=== PATIENT | female | born 1940 | race Caucasian/White ===

== ENCOUNTER → 2016-10-26 | Outpatient (CLI) | payer MEDICARE, BC ==
--- NOTE | 2016-10-26 13:44 | WOMENS IMAGING REPORT ---
EXAM DESCRIPTION: BILAT SCREENING MAMMO W/CAD COMPLETED DATE/TIME: 10/26/2016 11:07 am REASON FOR STUDY: ROUTINE SCREENING; Z12.31 Z12.31 ENCNTR SCREEN MAMMOGRAM FOR MALIGNANT NEOPLASM O F JOHN COMPARISON: July 2008 TECHNIQUE: Standard craniocaudal and mediolateral oblique views of each breast recorded using SHIFTa l acquisition. LIMITATIONS: None. FINDINGS: No masses, calcifications or architectural distortion. No areas of suspicion. Read with the assistance of CAD. .[facility] - R2 Cenova Version 1.3 .[facility] - R2 Cenova Version 1.3 .[facility] - R2 Cenova Version 2.4 .[facility] [place] R2 Cenova Version 2.4 .[facility] - R2 Chocolate Coater Version 9.2 IMPRESSION: NORMAL MAMMOGRAM. BIRADS 1. BREAST DENSITY: b. There are scattered areas of fibroglandular density. BIRAD: 1 NEGATIVE RECOMMENDATION: ROUTINE SCREENING COMMENT: The patient has been notified of the results by letter per SA requirements. Additional no tification policies are in place for contacting patient with suspicious or incomplete findings. Quality ID #225: The [employer] recommends an annual screening mammogram for women aged 40 years or over. This facility utilizes a reminder system to ensure that all patients receive reminder letters, and/or direct phone calls for appointments. This includes reminders for routine scr eening mammograms, diagnostic mammograms, or other Breast Imaging Interventions when appropriate. Th is patient will be placed in the appropriate reminder system. The [employer] (ACR) has developed recommendations for screening MRI of the breast s in certain patient populations, to be used in conjunction with mammography. Breast MRI surveillanc e may be appropriate for women with more than 20% lifetime risk of developing breast cancer as deter mined by genetic testing, significant family history of the disease, or history of mantle radiation f or Hodgkins Disease. ACR Practice Guidelines 2008. TECHNICAL DOCUMENTATION: FINDING NUMBER: (1) ASSESSMENT: (1) JOB ID: [id number] [employer]- All Rights Reserved
== END ==
LOC: WI 10:49
PROVIDERS: ATTEND Nurse Practitioner Acute Care
DX: Z12.31 Encounter for screening mammogram for malignant neoplasm of breast (principal)
CPT/HCPCS: 77067; G0202

== ENCOUNTER → 2016-11-30 | Outpatient (CLI) | payer MEDICARE, BC | LOC: LAB 12:52 | DX: M25.551 Pain in right hip (principal); M25.552 Pain in left hip | CPT/HCPCS: 36415; 85652; 86140 ==

== ENCOUNTER 2018-07-06 11:47 | Emergency (ER) | payer MEDICARE, BC ==
--- NOTE | 2018-07-06 12:51 | ER Document Report ---
ED Medical Screen (RME) - General Chief Complaint: Urinary Problem Stated Complaint: URINARY ISSUES Time Seen by Provider: 07/06/18 12:16 Primary Care Provider: ADONIS HOBBS NP [Primary Care Provider] - Follow up as needed Notes: Patient is a 77-year-old female presents to the emergency department for urinary frequency and hematuria. Patient states she has had urinary frequency for the last 3 months. States her primary care provider placed her on medication for overactive bladder. States today she noticed that her urine had blood in it which is why she presents to the emergency room. Patient is complaining of general suprapubic tenderness. She is denying any back pain, nausea, vomiting, fevers. GENERAL: Alert, interacts well. No acute distress. ABDOMEN: Soft, suprapubic tenderness noted non-distended. Bowel sounds present in all 4 quadrants. I have greeted and performed a rapid initial assessment of this patient. A comprehensive ED assessment and evaluation of the patient, analysis of test r esults and completion of the medical decision making process will be conducted by additional ED providers. This medical record was dictated with voice recognizing software. There may be grammatical, syntax errors that are unintended. TRAVEL OUTSIDE OF THE [place] IN LAST 30 DAYS: No - Related Data Allergies/Adverse Reactions: No Known Allergies Allergy (Verified 07/06/18 11:51) Past Medical History - Social History Frequency of alcohol use: None Drug Abuse: None - Past Medical History Cardiac Medical History: Reports: Hx Hypertension Denies: Hx Congestive Heart Failure, Hx DVT, Hx Heart Attack, Hx Hypercholesterolemia, Hx Pulmonary Embolism Pulmonary Medical History: Reports: Hx Asthma Denies: Hx COPD Neurological Medical History: Denies: Hx Seizures Endocrine Medical History: Denies: Hx Diabetes Mellitus Type 1, Hx Diabetes Mellitus Type 2, Hx Hyperthyroidism, Hx Hypothyroidism Renal/ Medical History: Denies: Hx Peritoneal Dialysis GI Medical History: Denies: Hx Cirrhosis, Hx Gastroesophageal Reflux Disease, Hx Hepatitis Musculoskeltal Medical History: 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 Bladder tack surgery. r obotic bladder surgery - Immunizations Hx Diphtheria, Pertussis, Tetanus Vaccination: Yes Physical Exam - Vital signs Vitals: Temp Pulse Resp BP Pulse Ox 97.8 F 88 16 154/84 H 96 07/06/18 11:59 07/06/18 11:59 07/06/18 11:59 07/06/18 11:59 07/06/18 11:59 Course - Vital Signs Vital signs: Temp Pulse Resp BP Pulse Ox 97.8 F 88 16 154/84 H 96 07/06/18 11:59 07/06/18 11:59 07/06/18 11:59 07/06/18 11:59 07/06/18 11:59 Doctor's Discharge - Discharge Referrals: ADONIS HOBBS, SENIOR MECHANICAL DESIGN ENGINEER [Primary Care Provider] - Follow up as needed
[2018-07-06 13:07] LABS: APPEARANCE,URINE TURBID; BILIRUBIN,URINE NEGATIVE (NEGATIVE); GLUCOSE, URINE NEGATIVE (NEGATIVE); KETONES,URINE NEGATIVE (NEGATIVE); LEUKOCYTE ESTERASE,URINE MODERATE (NEGATIVE); NITRITE,URINE POSITIVE (NEGATIVE); PROTEIN,URINE 100 mg/dL (NEGATIVE); URINE SPECIFIC GRAVITY 1.009; UROBILINOGEN,URINE NEGATIVE mg/dL (<2.0)
[2018-07-06 13:08] LABS: COLOR,URINE RED
[2018-07-06 13:40] LABS: ABSOLUTE BASOPHILS # (AUTO) 0.1 10^3/uL (0.0-0.2); ABSOLUTE LYMPHOCYTES (AUTO) 0.6 10^3/uL (0.5-4.7); ABSOLUTE MONOCYTES (AUTO) 0.3 10^3/uL (0.1-1.4); BASOPHILS % (AUTO) 0.7 % (0-2); EOSINOPHILS % (AUTO) 0.5 % (0-6); HEMATOCRIT 35.4 % (36.0-47.0); HEMOGLOBIN 12.1 g/dL (12.0-15.5); LYMPHOCYTES % (AUTO) 5.9 % (13-45); MEAN CORPUSCULAR HEMOGLOBIN 33.4 pg (27.0-33.4); MEAN CORPUSCULAR HGB CONC 34.1 g/dL (32.0-36.0); MEAN CORPUSCULAR VOLUME 98 fl (80-97); MONOCYTES % (AUTO) 2.9 % (3-13); PLATELET COUNT 301 10^3/uL (150-450); RED BLOOD COUNT 3.61 10^6/uL (3.72-5.28); RED CELL DISTRIBUTION WIDTH 15.8 % (11.5-14.0); TOTAL CELLS COUNTED % (AUTO) 100 %
[2018-07-06 14:02] LABS: ALANINE AMINOTRANSFERASE 28 U/L (9-52); ALBUMIN 4.1 g/dL (3.5-5.0); ALKALINE PHOSPHATASE 91 U/L (38-126); ANION GAP 7 (5-19); ASPARTATE AMINO TRANSFERASE 52 U/L (14-36); BILIRUBIN,DIRECT 0.5 mg/dL (0.0-0.4); BILIRUBIN,TOTAL 0.7 mg/dL (0.2-1.3); BLOOD UREA NITROGEN 14 mg/dL (7-20); CALCIUM 10.4 mg/dL (8.4-10.2); CARBON DIOXIDE 25 mmol/L (22-30); CHLORIDE 102 mmol/L (98-107); GLUCOSE 105 mg/dL (75-110); POTASSIUM 4.5 mmol/L (3.6-5.0); SODIUM 133.8 mmol/L (137-145); TOTAL PROTEIN 7.6 g/dL (6.3-8.2)
[2018-07-06] MEDS ORDERED: CEPHALEXIN 500 MG CAPSULE PO ONE (16:21)
--- NOTE | 2018-07-06 16:25 | ER Document Report ---
ED General - General Chief Complaint: Urinary Problem Stated Complaint: URINARY ISSUES Time Seen by Provider: 07/06/18 12:16 Primary Care Provider: ADONIS HOBBS NP [Primary Care Provider] - Follow up as needed Notes: Patient is a 77-year-old female presents to the emergency department for urinary frequency and hematuria. Patient states she has had urinary frequency for the last 3 months. States her primary care provider placed her on medication for overactive bladder. States today she noticed that her urine had blood in it which is why she presents to the emergency room. Patient is complaining of general suprapubic tenderness. She is denying any back pain, nausea, vomiting, fevers. TRAVEL OUTSIDE OF THE [place] IN LAST 30 DAYS: No - Related Data Allergies/Adverse Reactions: No Known Allergies Allergy (Verified 07/06/18 11:51) Past Medical History - Social History Smoking Status: Never Smoker Frequency of alcohol use: None Drug Abuse: None Family History: None, Reviewed & Not Pertinent Patient has suicidal ideation: No Patient has homicidal ideation: No - Past Medical History Cardiac Medical History: Reports: Hx Hypertension Denies: Hx Congestive Heart Failure, Hx DVT, Hx Heart Attack, Hx Hy percholesterolemia, Hx Pulmonary Embolism Pulmonary Medical History: Reports: Hx Asthma Denies: Hx COPD Neurological Medical History: Denies: Hx Seizures Endocrine Medical History: Denies: Hx Diabetes Mellitus Type 1, Hx Diabetes Mellitus Type 2, Hx Hyperthyroidism, Hx Hypothyroidism Renal/ Medical History: Denies: Hx Peritoneal Dialysis GI Medical History: Denies: Hx Cirrhosis, Hx Gastroesophageal Reflux Disease, Hx Hepatitis Musculoskeletal Medical History: 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 Bladder tack surgery. robotic bladder surgery - Immunizations Hx Diphtheria, Pertussis, Tetanus Vaccination: Yes Review of Systems - Review of Systems Constitutional: See HPI EENT: No symptoms reported Cardiovascular: See HPI Respiratory: See HPI Gastrointestinal: See HPI Genitourinary: See HPI Female Genitourinary: No symptoms reported Musculoskeletal: No symptoms reported Skin: No symptoms reported Hematologic/Lymphatic: No symptoms reported Neurological/Psychological: No symptoms reported Physical Exam - Vital signs Vitals: Temp Pulse Resp BP Pulse Ox 97.8 F 88 16 154/84 H 96 07/06/18 11:59 07/06/18 11:59 07/06/18 11:59 07/06/18 11:59 07/06/18 11:59 - Notes Notes: PHYSICAL EXAMINATION: Reviewed vital signs and charting by RN GENERAL: Alert, interacts well. No acute distress. HEAD: Normocephalic, atraumatic. EYES: Pupils equal and round. Extraocular movements intact. ENT: Oral mucosa moist, tongue midline. NECK: Full range of motion. Supple. Trachea midline. LUNGS: Clear to auscultation bilaterally, no wheezes, rales, or rhonchi. No respiratory distress. HEART: Regular rate and rhythm. No murmur ABDOMEN: soft, suprapubic tenderness. Non-distended. Bowel sounds present. no McBurney's point tenderness, no Gilbert sign. EXTREMITIES: Moves all 4 extremities spontaneously. No edema, No cyanosis. Normal distal neurovascular exam BACK: No CVAT NEUROLOGIC: Oriented and appropriate. Normal speech. PSYCH: Normal affect, normal mood. SKIN: Warm, dry, normal turgor. No rashes or lesions noted. Course - Re-evaluation Re-evalutation: 07/07/18 08:13 Overall well-appearing, alert and oriented and conversing properly. Patient with suprapubic tenderness and clinically consistent with hemorrhagic cystitis. Patient has a large UTI on urinalysis. - Vital Signs Vital signs: Temp Pulse Resp BP Pulse Ox 97.8 F 86 17 133/90 H 94 07/06/18 16:54 07/06/18 16:54 07/06/18 16:54 07/06/18 16:54 07/06/18 16:54 - Laboratory Result Diagrams: 07/06/18 13:16 07/06/18 13:16 Laboratory results interpreted by me: 07/06/18 07/06/18 07/06/18 11:50 13:16 13:16 RBC 3.61 L Hct 35.4 L MCV 98 H RDW 15.8 H Seg Neutrophils % 90.0 H Lymphocytes % 5.9 L Monocytes % 2.9 L Absolute Neutrophils 9.0 H Sodium 133.8 L Calcium 10.4 H Direct Bilirubin 0.5 H AST 52 H Urine Protein 100 H Urine Blood LARGE H Urine Nitrite POSITIVE H Ur Leukocyte Esterase MODERATE H Discharge - Discharge Clinical Impression: Urinary tract infection Condition: Good Disposition: HOME, SELF-CARE Instructions: Cephalexin ([facility]), Urinary Tract Infection ([facility]) Additional Instructions: Your urine shows findings consistent with a urinary tract infection. Please take all the antibiotics as directed even if your symptoms have improved. Please follow-up with your primary care physician as needed. Return to emergency room if you develop fever >101F, persistent vomiting, become lethargic, have severe pain in your sides, or any other symptoms that are concerning to you. Prescriptions: RX: Cephalexin Monohydrate [Keflex 500 mg Capsule] 500 mg PO BID 7 Days #14 capsule Referrals: ADONIS HOBBS NP [Primary Care Provider] - Follow up as needed
[2018-07-06 16:55] VITALS: BP 133/90
== END 2018-07-06 16:55 | disposition home or self-care (01) ==
LOC: ER 11:47
DX: N39.0 Urinary tract infection, site not specified (principal); R31.0 Gross hematuria; N32.81 Overactive bladder; Z79.899 Other long term (current) drug therapy; I10 Essential (primary) hypertension; J45.909 Unspecified asthma, uncomplicated
CPT/HCPCS: 99283; 36415; 87086; 85025; 87088; 80053; 81001; 87186; A9270

== ENCOUNTER 2018-08-05 19:24 | Emergency (ER) | payer MEDICARE, BC ==
[2018-08-05 20:21] LABS: ABSOLUTE EOSINOPHILS # (AUTO) 0.3 10^3/uL (0.0-0.6); ABSOLUTE LYMPHOCYTES (AUTO) 1.7 10^3/uL (0.5-4.7); ABSOLUTE MONOCYTES (AUTO) 0.5 10^3/uL (0.1-1.4); ABSOLUTE NEUT (AUTO) 4.5 10^3/uL (1.7-8.2); BASOPHILS % (AUTO) 0.4 % (0-2); EOSINOPHILS % (AUTO) 3.7 % (0-6); HEMATOCRIT 31.5 % (36.0-47.0); HEMOGLOBIN 10.4 g/dL (12.0-15.5); LYMPHOCYTES % (AUTO) 24.1 % (13-45); MEAN CORPUSCULAR HEMOGLOBIN 32.2 pg (27.0-33.4); MEAN CORPUSCULAR VOLUME 98 fl (80-97); PLATELET COUNT 288 10^3/uL (150-450); RED BLOOD COUNT 3.23 10^6/uL (3.72-5.28); RED CELL DISTRIBUTION WIDTH 16.3 % (11.5-14.0); SEGMENTED NEUTROPHILS % (AUTO) 64.8 % (42-78); TOTAL CELLS COUNTED % (AUTO) 100 %; WHITE BLOOD COUNT 6.9 10^3/uL (4.0-10.5)
[2018-08-05 20:32] LABS: ALANINE AMINOTRANSFERASE 31 U/L (9-52); ALBUMIN 3.6 g/dL (3.5-5.0); ALKALINE PHOSPHATASE 66 U/L (38-126); ANION GAP 10 (5-19); ASPARTATE AMINO TRANSFERASE 39 U/L (14-36); BILIRUBIN,DIRECT 0.1 mg/dL (0.0-0.4); BILIRUBIN,TOTAL 0.5 mg/dL (0.2-1.3); BLOOD UREA NITROGEN 23 mg/dL (7-20); CALCIUM 9.8 mg/dL (8.4-10.2); CARBON DIOXIDE 25 mmol/L (22-30); CHLORIDE 99 mmol/L (98-107); GLUCOSE 132 mg/dL (75-110); LIPASE 244.3 U/L (23-300); POTASSIUM 4.6 mmol/L (3.6-5.0); TOTAL PROTEIN 6.2 g/dL (6.3-8.2)
--- NOTE | 2018-08-05 20:48 | RADIOLOGY REPORT (SQ) ---
EXAM DESCRIPTION: XR CHEST 1 VIEW COMPLETED DATE/TME: 08/05/2018 20:03 CLINICAL HISTORY: 77 years, Female, choking COMPARISON: Prior study from 02/15/2016 NUMBER OF VIEWS: One TECHNIQUE: Single frontal view of the chest was obtained. LIMITATIONS: None. FINDINGS: Cardiac and mediastinal contours are stable. Bibasilar opacity persists, unchanged from 02/15/2016, likely indicating eventration of the right hemidiaphragm or prominent epicardial fat given its stability. Bandlike opacity is evident about the left lung base, likely atelectasis or scar. No pleural effusion or pneumothorax. IMPRESSION: Stable right basilar opacity, likely indicating eventration of the right hemidiaphragm or prominent pericardial fat given its long-term stability. Otherwise, bandlike opacity about the left lung base most likely indicates atelectasis/scar. copyright 2010 [employer]- All Rights Reserved
[2018-08-05] MEDS ORDERED: SUCRALFATE 1 GM TABLET PO ONE (21:53)
[2018-08-05] MEDS ORDERED: MORPHINE SULFATE 10 MG/ML INJ IV PRN (21:53)
[2018-08-05] MEDS ORDERED: METOCLOPRAMIDE HCL INJ/PF 10 MG/2 ML SDV IV ONE (21:53)
[2018-08-05] MEDS ORDERED: FAMOTIDINE INJ/PF 20 MG/2 ML SDV IV ONE (21:53)
[2018-08-05] MEDS ORDERED: LIDOCAINE 2% VISCOUS SOLN 20 ML UDCUP PO ONE (21:54)
[2018-08-05] MEDS ORDERED: METOCLOPRAMIDE HCL ORAL SOLN 10 MG/10 ML UDCUP PO ONE (21:54)
[2018-08-05] MEDS ORDERED: MAG HYDROX/AL HYDROX/SIMETH SUSP 30 ML UDCUP PO ONE (21:54)
--- NOTE | 2018-08-05 21:56 | ER Document Report ---
ED General - General Chief Complaint: Epigastric Pain Stated Complaint: CHEST DISCOMFORT Time Seen by Provider: 08/05/18 20:02 Primary Care Provider: ADONIS HOBBS NP [Primary Care Provider] - Follow up as needed Notes: Patient is a 77-year-old female with past medical history of rheumatoid arthritis, hypertension, presents with epigastric abdominal pain radiating around to her right upper quadrant and right flank. Patient states that the pain started while eating Telugu food. It is a dull, throbbing, aching, constant, severe pain. Patient states that she is been having this pain on and off for months but it is more severe tonight than normal. No exacerbating or alleviating factors that she can identify. She has had nausea with no vomiting. She states that she feels like there is something stuck in her throat as well with this pain. She denies distinct chest pain or shortness of breath. No car diac history. She is scheduled to see a GI doctor for endoscopy for further evaluation of this ongoing recurrent pain. TRAVEL OUTSIDE OF THE [place] IN LAST 30 DAYS: No - Related Data Allergies/Adverse Reactions: No Known Allergies Allergy (Verified 08/05/18 21:46) Past Medical History - General Information source: Patient - Social History Smoking Status: Never Smoker Frequency of alcohol use: None Drug Abuse: None Lives with: Spouse/Significant other Family History: Reviewed & Not Pertinent Patient has suicidal ideation: No Patient has homicidal ideation: No - Past Medical History Cardiac Medical History: Reports: Hx Hypertension Denies: Hx Congestive Heart Failure, Hx DVT, Hx Heart Attack, Hx Hypercholesterolemia, Hx Pulmonary Embolism Pulmonary Medical History: Reports: Hx Asthma Denies: Hx COPD Neurological Medical History: Denies: Hx Seizures Endocrine Medical History: Denies: Hx Diabetes Mellitus Type 1, Hx Diabetes Mellitus Type 2, Hx Hyperthyroidism, Hx Hypothyroidism Renal/ Medical History: Denies: Hx Peritoneal Dialysis GI Medical History: Denies: Hx Cirrhosis, Hx Gastroesophageal Reflux Disease, Hx Hepatitis Musculoskeletal Medical History: 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 Bladder tack surgery. robotic bladder surgery - Immunizations Hx Diphtheria, Pertussis, Tetanus Vaccination: Yes Review of Systems - Review of Systems Notes: Constitutional: Negative for fever. HENT: Negative for sore throat. Eyes: Negative for visual changes. Cardiovascular: Negative for chest pain. Respiratory: Negative for shortness of breath. Gastrointestinal: Positive for upper abdominal pain, nausea Genitourinary: Negative for dysuria. Musculoskeletal: Positive for right flank pain and mid back pain Skin: Negative for rash. Neurological: Negative for headaches, weakness or numbness. 10 point ROS negative except as marked above and in HPI. Physical Exam - Vital signs Vitals: Temp Pulse Resp BP Pulse Ox 97.8 F 68 14 130/68 H 94 08/05/18 19:24 08/05/18 19:24 08/05/18 19:24 08/05/18 19:24 08/05/18 19:24 Notes: PHYSICAL EXAMINATION: GENERAL: Appears moderately unwell but in no overt distress HEAD: Atraumatic, normocephalic. EYES: Pupils equal round and reactive to light, extraocular movements intact, sclera anicteric, conjunctiva are normal. ENT: nares patent, oropharynx clear without exudates. Moist mucous membranes. NECK: Normal range of motion, supple without lymphadenopathy LUNGS: Breath sounds clear to auscultation bilaterally and equal. No wheezes rales or rhonchi. HEART: Regular rate and rhythm without murmurs ABDOMEN: Soft, focal tenderness to the epigastrium and right upper quadrant, normoactive bowel sounds. No guarding, no rebound. No masses appreciated. EXTREMITIES: Normal range of motion, no pitting or edema. No cyanosis. NEUROLOGICAL: No focal neurological deficits. Moves all extremities spontaneously and on command. PSYCH: Normal mood, normal affect. SKIN: Warm, Dry, normal turgor, no rashes or lesions noted. Course - Re-evaluation Re-evalutation: 08/05/18 21:55 Patient presents with epigastric abdominal pain with associated reflux symptoms most consistent with likely gastritis. He has had similar symptoms for over 3 months, scheduled to see her GI physician for endoscopy given the ongoing duration of her symptoms. Symptoms did start today after eating Telugu food. Patient has no focal abdominal tenderness on examination. Given advanced age CT the abdomen pelvis was obtained to exclude aortic pathology as patient was complaining of pain radiating through to her back. This is noted to be normal with the exception of heavy colonic stool burden. Lipase is normal. No LFT changes. EKG, troponin normal. Based on history and exam, I do not suspect ACS, pulmonary embolus, SBO, mesenteric ischemia, acute pancreatitis, biliary pathology, or an abdominal aortic dissection. Patient has had improvement of symptoms here with a GI cocktail. At this time will discharge with return precautions and follow-up recommendations. Verbal discharge instructions given a the bedside and opportunity for questions given. Medication warnings reviewed. Patient is in agreement with this plan and has verbalized understanding of return precautions and the need for primary care follow-up in the next 24-72 hours. - Vital Signs Vital signs: Temp Pulse Resp BP Pulse Ox 97.8 F 68 23 H 107/42 L 94 08/05/18 19:24 08/05/18 19:24 08/05/18 23:32 08/05/18 23:32 08/05/18 23:32 - Laboratory Result Diagrams: 08/05/18 19:36 08/05/18 19:36 Laboratory results interpreted by me: 08/05/18 08/05/18 19:36 19:36 RBC 3.23 L Hgb 10.4 L Hct 31.5 L MCV 98 H RDW 16.3 H Sodium 134.0 L BUN 23 H Glucose 132 H AST 39 H Total Protein 6.2 L - Diagnostic Test Radiology reviewed: Reports reviewed - EKG Interpretation by Me Additional EKG results interpreted by me: 08/06/18 00:52 Sinus rhythm, rate 59. No ST elevations or depressions. QTC is 420. Discharge - Discharge Clinical Impression: Upper abdominal pain, Mid back pain, Nausea Condition: Good Disposition: HOME, SELF-CARE Additional Instructions: Your symptoms appear to be most consistent with stomach or upper intestinal irritation. Please begin taking famotidine 40 mg in the morning and 40 mg at night. Take Carafate prior to meals. You may also take medicine such as Pepto- Bismol or Tums to assist with your pain. Please return to emergency department immediately if you have worsening of your pain, shortness of breath, vomiting, become unable to exert yourself due to pain or difficulty breathing, you pass out, or have any pain that radiates into your arms, jaw, or back. Please also return if you have any additional symptoms that are concerning to you. As we have discussed, the most important thing is lifestyle changes. You need to avoid smoking, sodas, tea, coffee, alcohol, spicy foods, and acidic foods such as citrus fruits, tomato based products, berries, and most fruit juices. Your CT scan did also note a large amount of stool in your colon which could also contribute to your symptoms. Please take 1-2 capfuls of MiraLAX daily to assist with your constipation. Prescriptions: Famotidine 40 mg PO BID #60 tablet Sucralfate [Carafate 1 gm Tablet] 1 gm PO ACHS #120 tablet Referrals: ADONIS HOBBS NP [Primary Care Provider] - Follow up in 3-5 days
--- NOTE | 2018-08-05 23:04 | EKG REPORT ---
SEVERITY:- NORMAL ECG - SINUS RHYTHM : Confirmed by: Adam Hastings 05-Aug-2018 23:03:55
--- NOTE | 2018-08-06 00:29 | RADIOLOGY REPORT (SQ) ---
EXAM DESCRIPTION: CT ABDOMEN PELVIS WITH IV CONTRAST COMPLETED DATE/TME: 08/05/2018 21:53 CLINICAL HISTORY: 77 years, Female, upper ab pain, radiating to the back COMPARISON: None. TECHNIQUE: Contrast enhanced CT of the abdomen/pelvis was performed. Coronal and sagittal reformations were created. Images stored on PACS. All CT scanners at this facility use dose modulation, iterative reconstruction, and/or weight based dosing when appropriate to reduce radiation dose to as low as reasonably achievable (ALARA). [facility]: Dose Right [facility]: CareDose [facility]: Dose Right [facility]: Teradose 4D [facility]: Filao LIMITATIONS: None. FINDINGS: Limited evaluation of the lower chest reveals a small right pleural effusion with associated right basilar atelectasis. Additional band of opacity is noted about the left lower lobe, indicating atelectasis or scar as well. The liver, spleen, pancreas, gallbladder, and both adrenal glands appear normal. Both kidneys enhance symmetrically. There is no hydronephrosis or hydroureter. The urinary bladder is poorly visualized secondary to extensive streak artifact from the patient's indwelling bilateral total hip arthroplasties. A tiny focus of gas density is noted about the urinary bladder however, presumably iatrogenic. Scattered colonic diverticula are noted without pericolonic inflammation. There is a large amount of stool located within the right hemicolon. Moderately sized bilateral inguinal hernias are noted, the left which contains only fat and the right of which contains a short segment of small bowel. Otherwise, the small and large bowel appear normal in caliber without evidence of focal wall thickening or bowel obstruction. A tiny fat-containing umbilical hernia is also evident. Mild calcifications are noted about the abdominal aorta and proximal iliac vessels. No suspicious lymphadenopathy or drainable fluid collections are appreciated. The uterus is absent. A 3.3 x 2.6 cm fluid density lesion is noted in the region of the left adnexa on image 66 of series 3. Right ovary shows no suspicious abnormality. Bone windows show no destructive osseous lesions. Multilevel lumbar spondylosis is evident with leftward curvature of the lower lumbar spine. IMPRESSION: No acute abnormality within the abdomen or pelvis. Large amount of stool within the right hemicolon. Small right pleural effusion with associated right basilar atelectasis. Moderately sized bilateral inguinal hernias, the right of which contains a short segment of small bowel in the left which contains only fat. No evidence of bowel obstruction. 3.3 cm benign appearing ovarian cyst. Recommend prompt follow-up with pelvic US given the patient's age. Reference: J Am Sagar Radiol 2013;10:675-681 TECHNICAL DOCUMENTATION: Quality ID # 436: Final reports with documentation of one or more dose reduction techniques (e.g., Automated exposure control, adjustment of the mA and/or kV according to patient size, use of iterative reconstruction technique) copyright 2011 [employer]- All Rights Reserved
[2018-08-06] MEDS ORDERED: LACTULOSE SYRUP 20 GM/30 ML UDCUP PO ONE (00:51)
[2018-08-06] MEDS ORDERED: LACTULOSE SYRUP 20 GM/30 ML UDCUP ONE (02:03)
[2018-08-06 02:08] VITALS: BP 141/70
== END 2018-08-06 02:12 | disposition home or self-care (01) ==
LOC: ER 19:24
DX: R10.13 Epigastric pain (principal); R10.11 Right upper quadrant pain; M54.6 Pain in thoracic spine; R11.0 Nausea; I10 Essential (primary) hypertension; M06.9 Rheumatoid arthritis, unspecified; Z90.710 Acquired absence of both cervix and uterus
CPT/HCPCS: 93005; 99285; 96374; 96375; 36415; 83690; 85025; 80053; 84484; 71045; 74177; 93010; A9270 ×3; J3490; J2765; S0028

== ENCOUNTER 2018-12-07 08:38 | Day surgery (SDC) | payer MEDICARE, BC ==
[2018-12-07] MEDS ORDERED: DIPHENHYDRAMINE HCL 50 MG/ML VIAL ONE (08:48)
[2018-12-07] MEDS ORDERED: ONDANSETRON HCL INJ/PF 4 MG/2 ML SDV ONE (08:48)
[2018-12-07] MEDS ORDERED: GLUCAGON,HUMAN RECOMB 1 MG INJ ONE (08:49)
[2018-12-07] MEDS ORDERED: NALOXONE HCL INJ/PF 0.4 MG/1 ML SDV ONE (08:49)
[2018-12-07] MEDS ORDERED: EPINEPHRINE INJ 1 MG/10 ML DISP.SYRIN ONE (08:49)
[2018-12-07] MEDS ORDERED: FLUMAZENIL INJ 0.5 MG/5 ML VIAL ONE (08:49)
[2018-12-07] MEDS: MIDAZOLAM 2 MG/2 ML INJ ONE ×4 (09:07→09:32)
[2018-12-07] MEDS: FENTANYL CITRATE INJ/PF 100 MCG/2 ML AMPUL ONE ×2 (09:09→09:24)
--- NOTE | 2018-12-07 09:51 | Discharge Summary ---
Discharge Summary (SDC) - Discharge Final Diagnosis: Incomplete colonoscopy Date of Surgery: 12/07/18 Discharge Date: 12/07/18 Condition: Good Treatment or Instructions: [facility] [place] [id number] POST ENDOSCOPY DISCHARGE INSTRUCTIONS 1. Diet: Start clear liquids that a regular diet as tolerated. 2. Resume all preoperative medications. All oral anticoagulants and aspirins can be resumed 24 hours after procedure. 3. If a polypectomy was performed some bleeding per rectum may occur. This should stop within 3 days. If not, please contact the office. 4. If you had a colonoscopy you may experience some bloating and delayed return of normal bowel function for several days, your regular bowel movement pattern should resume within a week. 5. Please contact [facility] at to make an appointment with Dr. Hensley for 1 to 3 weeks following procedure. 6. If you have any questions or concerns regarding your care,treatment plan or follow up, please contact our office. Referrals: DARRIN ZELAYA MD [Primary Care Provider] - Discharge Diet: As Tolerated Discharge Activity: Activity As Tolerated Home Care Assistance: None Needed Report the Following to Your Physician Immediately: Shortness of Breath, Increase in Pain, Fever over 101 Degrees
--- NOTE | 2018-12-07 09:55 | Operative Report ---
Operative Report DATE OF SURGERY: 12/07/18 PREOPERATIVE DIAGNOSIS: Screening for colorectal carcinoma POSTOPERATIVE DIAGNOSIS: Incomplete colonoscopy; no pathologic findings up to the splenic flexure OPERATION: Partial or incomplete colonoscopy to 100 cm in the anal verge SURGEON: JONAS HENSLEY ANESTHESIA: Moderate Sedation TISSUE REMOVED OR ALTERED: None COMPLICATIONS: None ESTIMATED BLOOD LOSS: None PROCEDURE: Patient was taken from the fifth floor holding area to the endoscopy suite where monitoring devices were attached to. Conscious sedation was initiated. Surgical plan surgical timeout were conducted. A rectal exam was performed. There is no visible palpable anorectal pathology. The flexible adult colonoscope was advanced approximately 100 cm from the anal verge. Unfortunately the scope could not be advanced further because of patient's intolerance to the procedure. This is being performed under conscious sedation with IV Versed and IV fentanyl. Patient's saturations were dipping to 90%. Given her advanced age, and this set of circumstances, we felt that aborted the procedure was in the patient's best interest. The scope was withdrawn the length of the colon. The colon was well-prepped. There were no pathologic findings identified in the left colon or anal canal. He tolerated the procedure well. She will follow-up with Dr. Hensley on an outpatient basis. We will discuss the role of clinical observation versus air-contrast barium enema versus repeat colonoscopy under LMAC anesthesia.
[2018-12-07 10:56] VITALS: BP 134/77
== END 2018-12-07 13:06 | disposition home or self-care (01) ==
LOC: END 08:38
PROVIDERS: ATTEND Surgery
DX: Z12.11 Encounter for screening for malignant neoplasm of colon (principal); I10 Essential (primary) hypertension; M06.9 Rheumatoid arthritis, unspecified; M81.0 Age-related osteoporosis without current pathological fracture; K21.9 Gastro-esophageal reflux disease without esophagitis; Z01.818 Encounter for other preprocedural examination; Z79.51 Long term (current) use of inhaled steroids; Z79.899 Other long term (current) drug therapy
CPT/HCPCS: G0105; J2250; J3010; 45378; J0171; J1200; J1610; J2310; J2405; J3490

== ENCOUNTER 2018-12-20 09:33 | Day surgery (SDC) | payer MEDICARE, BC ==
[~2018-12-20 09:33] MED LIST: ACETAMINOPHEN 325 MG TABLET PO PRN; RINGERS SOLUTION,LACTATED 1,000 ML IV PRN
[2018-12-20] MEDS ORDERED: PROPOFOL INJ 200 MG/20 ML VIAL IV ONE (10:13)
[2018-12-20] MEDS ORDERED: ONDANSETRON HCL INJ/PF 4 MG/2 ML SDV IV PRN (10:44)
[2018-12-20 11:33] LABS: HEMATOCRIT 33.9 % (36.0-47.0); HEMOGLOBIN 11.5 g/dL (12.0-15.5); MEAN CORPUSCULAR HEMOGLOBIN 32.6 pg (27.0-33.4); MEAN CORPUSCULAR HGB CONC 33.8 g/dL (32.0-36.0); MEAN CORPUSCULAR VOLUME 97 fl (80-97); PLATELET COUNT 280 10^3/uL (150-450); RED BLOOD COUNT 3.52 10^6/uL (3.72-5.28); RED CELL DISTRIBUTION WIDTH 15.5 % (11.5-14.0); WHITE BLOOD COUNT 8.2 10^3/uL (4.0-10.5)
--- NOTE | 2018-12-20 12:47 | Operative Report ---
Operative Report DATE OF SURGERY: 12/20/18 PREOPERATIVE DIAGNOSIS: 1. Abdominal pain. 2. Need for screening colonoscopy POSTOPERATIVE DIAGNOSIS: Normal colonoscopy except for pandiverticulosis OPERATION: Total colonoscopy to cecum with photodocumentation SURGEON: JONAS ARIZA ANESTHESIA: LMAC TISSUE REMOVED OR ALTERED: None COMPLICATIONS: none ESTIMATED BLOOD LOSS: none INTRAOPERATIVE FINDINGS: See below PROCEDURE: Obtaining informed consent the patient was taken from the preoperative holding area to the main endoscopy suite where monitoring devices were attached to the patient. Plan and surgical timeout were conducted The patient was placed in the left lateral decubitus position with knees to chest. A perianal examination was performed. There was no visible or palpable anorectal pathology. Sphincter tone was felt to be normal. The flexible adult colonoscope was advanced through the anal rectal canal, all the way to the cecum. Visualization of the cecum was achieved and the ileocecal valve, the appendiceal orifice and transillumination of the anterior abdominal wall. This was a good study on a reasonably well-prepped bowel; there was a mild to moderate amount of green particulate stool requiring aspiration and irrigation. The colonoscope was withdrawn slowly and methodically checked and the mucosa carefully. There was no evidence of tumor, stricture, bleeding or polyp. There were extensive diverticulosis of the sigmoid and left colon. The scope was slowly withdrawn through the anal rectal canal. Complete visualization of the rectum was achieved with photodocumentation. The scope was withdrawn to the patient's anus. The patient tolerated the procedure well and was taken to the recovery area in stable condition. Per surveillance guidelines, patient will not require follow-up colonoscopy based on age, unless patient develops symptoms.
--- NOTE | 2018-12-20 12:49 | Discharge Summary ---
Discharge Summary (SDC) - Discharge Final Diagnosis: Status post colonoscopy; diverticulosis Date of Surgery: 12/20/18 Discharge Date: 12/20/18 Condition: Good Treatment or Instructions: [facility] [place] [id number] POST ENDOSCOPY DISCHARGE INSTRUCTIONS 1. Diet: Start clear liquids that a regular diet as tolerated. 2. Resume all preoperative medications. All oral anticoagulants and aspirins can be resumed 24 hours after procedure. 3. If a polypectomy was performed some bleeding per rectum may occur. This should stop within 3 days. If not, please contact the office. 4. If you had a colonoscopy you may experience some bloating and delayed return of normal bowel function for several days, your regular bowel movement pattern should resume within a week. 5. Please contact [facility] at to make an appointment with Dr. Hensley for 1 to 3 weeks following procedure. 6. If you have any questions or concerns regarding your care,treatment plan or follow up, please contact our office. Based on patient's age, she will not require a surveillance colonoscopy; if she develops symptoms, then further investigation may be dictated. Referrals: DARRIN ZELAYA MD [Primary Care Provider] -
[2018-12-20 14:26] VITALS: BP 135/79
== END 2018-12-20 13:55 | disposition home or self-care (01) ==
LOC: OROUT 09:33
PROVIDERS: ATTEND Surgery
DX: Z12.11 Encounter for screening for malignant neoplasm of colon (principal); K57.30 Diverticulosis of large intestine without perforation or abscess without bleeding; J45.909 Unspecified asthma, uncomplicated; I10 Essential (primary) hypertension; M81.0 Age-related osteoporosis without current pathological fracture; K21.9 Gastro-esophageal reflux disease without esophagitis; Z79.51 Long term (current) use of inhaled steroids; Z79.899 Other long term (current) drug therapy
CPT/HCPCS: 36415; 85027; 00812; G0105; J2704; 45378; 812

== ENCOUNTER 2018-12-23 22:28 | Inpatient (IN) | payer MEDICARE, BC ==
[2018-12-23] MEDS ORDERED: ASPIRIN 81 MG TABLET, CHEWABLE PO ONE (23:50)
[2018-12-24] MEDS ORDERED: ONDANSETRON HCL INJ/PF 4 MG/2 ML SDV IV ONE ×2 (00:20→02:00)
[2018-12-24] MEDS ORDERED: MORPHINE SULFATE 10 MG/ML INJ IV ONE (00:20)
--- NOTE | 2018-12-24 00:20 | ER Document Report ---
ED General - General Chief Complaint: Chest Pain Stated Complaint: CHEST PAIN Time Seen by Provider: 12/24/18 00:03 Notes: Patient is a 78-year-old female that comes emergency department for chief complaint of epigastric pain (she points to the epigastric area) with pain radiating up into her chest and down into her mid to lower abdomen, she vomited 3 times today, she has not had a bowel movement in several days as well. She states she had a colonoscopy 4 days ago which was reportedly normal. She denies blood in the vomit, fever, cough, shortness of breath. Past medical history includes rheumatoid arthritis on methotrexate, asthma, hypertension, bladder tack, and she is on chronic pain management with Endocet. She is also currently on Carafate and famotidine. She has never had an endoscopy. She denies alcohol. TRAVEL OUTSIDE OF THE [place] IN LAST 30 DAYS: No - Related Data Allergies/Adverse Reactions: No Known Allergies Allergy (Verified 12/07/18 08:44) Past Medical History - General Information source: Patient - Social History Smoking Status: Never Smoker Frequency of alcohol use: None Drug Abuse: None Lives with: Family Family History: Reviewed & Not Pertinent Patient has suicidal ideation: No Patient has homicidal ideation: No - Past Medical History Cardiac Medical History: Reports: Hx Hypertension Denies: Hx Congestive Heart Failure, Hx Coronary Artery Disease, Hx DVT, Hx Heart Attack, Hx Hypercholesterolemia, Hx Pulmonary Embolism Pulmonary Medical History: Reports: Hx Pneumonia - hx Denies: Hx Asthma, Hx Bronchitis, Hx COPD Neurological Medical History: Denies: Hx Cerebrovascular Accident, Hx Seizures Endocrine Medical History: Denies: Hx Diabetes Mellitus Type 1, Hx Diabetes Mellitus Type 2, Hx Hyperthyroidism, Hx Hypothyroidism Renal/ Medical History: Denies: Hx Peritoneal Dialysis GI Medical History: Denies: Hx Cirrhosis, Hx Gastroesophageal Reflux Disease, Hx Hepatitis Musculoskeletal Medical History: Reports Hx Arthritis Psychiatric Medical History: Reports: Hx Depression Infectious Medical History: Denies: Hx Hepatitis Past Surgical History: Reports: Hx Hysterectomy, Hx Orthopedic Surgery - b/l k nees; b/l hips; toes, Hx Urinary Tract Surgery - "bladder", Other - Bilateral cataract surgery. Bladder tack surgery. robotic bladder surgery - Immunizations Hx Diphtheria, Pertussis, Tetanus Vaccination: No Hx Pneumococcal Vaccination: 03/31/17 Review of Systems - Review of Systems Constitutional: No symptoms reported EENT: No symptoms reported Cardiovascular: No symptoms reported Respiratory: No symptoms reported Gastrointestinal: See HPI Genitourinary: No symptoms reported Female Genitourinary: No symptoms reported Musculoskeletal: No symptoms reported Skin: No symptoms reported Hematologic/Lymphatic: No symptoms reported Neurological/Psychological: No symptoms reported Physical Exam - Vital signs Vitals: Temp Pulse Resp BP Pulse Ox 98 F 92 16 171/83 H 93 12/23/18 22:42 12/23/18 22:42 12/23/18 22:42 12/23/18 22:42 12/23/18 22:42 - Notes Notes: GENERAL: Alert, interacts well. HEAD: Normocephalic, atraumatic. EYES: Pupils equal, round, and reactive to light. Extraocular movements intact. ENT: Oral mucosa moist, tongue midline. Oropharynx unremarkable. Airway patent. NECK: Full range of motion. Supple. Trachea midline. LUNGS: Clear to auscultation bilaterally, no wheezes, rales, or rhonchi. No respiratory distress. HEART: Regular rate and rhythm. No murmur ABDOMEN: Patient is notably tender in the epigastric area, lower abdomen seems completely benign, bowel sounds are still present, no significant distention or guarding. GENITOURINARY: Deferred EXTREMITIES: Moves all 4 extremities spontaneously. No edema, normal radial and dorsalis pedis pulses bilaterally. No cyanosis. BACK: no cervical, thoracic, lumbar midline tenderness. No saddle anesthesia, normal distal neurovascular exam. Moves all extremities in full range of motion. NEUROLOGICAL: Alert and oriented x3. Normal speech. Cranial nerves II through XII grossly intact. PSYCH: Normal affect, normal mood. SKIN: Warm, dry, normal turgor. No rashes or lesions noted. Course - Re-evaluation Re-evalutation: Patient is actually quite well-appearing and conversational, completely alert, unremarkable vital signs. She does have epigastric tenderness on exam however. Chest x-ray and EKG without concerning findings. Chest x-ray does show abnormality at the diaphragm but this is unchanged from prior. CBC nonspecific, chemistry and lipase nonspecific. CAT scan showing more gagging hernia with bowel in the hernia with fluid and i nflammation at the bowel. Concerning for obstruction of the colon. Possible incarceration. Patient still appears well on reevaluation, she does not appear to have any distress. She has been remedicated however. Will discuss with surgery. Discussed with Dr. Manzano, general surgeon on-call, he accepts patient to his service, he recommends patient be admitted and brought upstairs and he will ev aluate her. I discussed this with patient and she states satisfaction and agreement. - Vital Signs Vital signs: Temp Pulse Resp BP Pulse Ox 98.2 F 81 18 149/77 H 97 12/24/18 06:51 12/24/18 06:51 12/24/18 06:51 12/24/18 06:51 12/24/18 06:51 - Laboratory Result Diagrams: 12/24/18 00:15 12/24/18 00:15 Laboratory results interpreted by me: 12/24/18 12/24/18 00:15 00:15 RDW 16.1 H Lymph % (Auto) 10.3 L Absolute Neuts (auto) 8.4 H Seg Neutrophils % 84.5 H Glucose 113 H Calcium 10.5 H Creatine Kinase 23 L Discharge - Discharge Clinical Impression: Morgagni hernia Vomiting Qualifiers: Vomiting type: unspecified Vomiting Intractability: unspecified Nausea presence: with nausea Qualified Code(s): R11.2 - Nausea with vomiting, un specified Abdominal pain Qualifiers: Abdominal location: upper abdomen, unspecified Qualified Code(s): R10.10 - Upper abdominal pain, unspecified Condition: Stable Disposition: ADMITTED INPATIENT Admitting Provider: Surgicalist Unit Admitted: Surgical Floor
[2018-12-24 00:38] LABS: ABSOLUTE MONOCYTES (AUTO) 0.5 10^3/uL (0.1-1.4); ABSOLUTE NEUT (AUTO) 8.4 10^3/uL (1.7-8.2); BASOPHILS % (AUTO) 0.1 % (0-2); EOSINOPHILS % (AUTO) 0.3 % (0-6); HEMATOCRIT 36.5 % (36.0-47.0); LYMPHOCYTES % (AUTO) 10.3 % (13-45); MEAN CORPUSCULAR HEMOGLOBIN 31.9 pg (27.0-33.4); MEAN CORPUSCULAR HGB CONC 32.9 g/dL (32.0-36.0); MEAN CORPUSCULAR VOLUME 97 fl (80-97); MONOCYTES % (AUTO) 4.8 % (3-13); PLATELET COUNT 270 10^3/uL (150-450); RED BLOOD COUNT 3.76 10^6/uL (3.72-5.28); RED CELL DISTRIBUTION WIDTH 16.1 % (11.5-14.0); SEGMENTED NEUTROPHILS % (AUTO) 84.5 % (42-78); TOTAL CELLS COUNTED % (AUTO) 100 %; WHITE BLOOD COUNT 9.9 10^3/uL (4.0-10.5)
--- NOTE | 2018-12-24 00:53 | RADIOLOGY REPORT (SQ) ---
EXAM DESCRIPTION: XR CHEST 1 VIEW COMPLETED DATE/TME: 12/23/2018 23:50 CLINICAL HISTORY: 78 years, Female, chest pain COMPARISON: 08/05/2018 NUMBER OF VIEWS: One TECHNIQUE: AP view of the chest LIMITATIONS: None. FINDINGS: There is persistent eventration of the right hemidiaphragm with a persistent right basilar opacity. The left lung is clear. The heart is normal in size. There is no pneumothorax or pleural effusion. The bones are unchanged. IMPRESSION: Persistent eventration of the right hemidiaphragm with a persistent right basilar airspace opacity, similar to the prior. copyright 2010 [employer]- All Rights Reserved
[2018-12-24 00:58] LABS: ALBUMIN 4.3 g/dL (3.5-5.0); ALKALINE PHOSPHATASE 86 U/L (38-126); ANION GAP 9 (5-19); ASPARTATE AMINO TRANSFERASE 26 U/L (14-36); BILIRUBIN,DIRECT 0.1 mg/dL (0.0-0.4); BILIRUBIN,TOTAL 0.4 mg/dL (0.2-1.3); BLOOD UREA NITROGEN 13 mg/dL (7-20); CALCIUM 10.5 mg/dL (8.4-10.2); CARBON DIOXIDE 27 mmol/L (22-30); CHLORIDE 101 mmol/L (98-107); CREATINE KINASE 23 U/L (30-135); GLUCOSE 113 mg/dL (75-110); POTASSIUM 3.9 mmol/L (3.6-5.0); TOTAL PROTEIN 7.3 g/dL (6.3-8.2)
[2018-12-24 01:16] LABS: CREATINE KINASE MB 0.37 ng/mL (<4.55)
[2018-12-24 01:21] LABS: TROPONIN I < 0.012 ng/mL
[2018-12-24] MEDS ORDERED: HYDROMORPHONE HCL INJ/PF 2 MG/ML AMPULE IV ONE ×2 (02:00→05:18)
[2018-12-24] MEDS ORDERED: NORMAL SALINE 1000 ML 1,000 ML IV ONE (04:34)
[2018-12-24] MEDS ORDERED: NORMAL SALINE 1000 ML 1,000 ML IV PRN (04:34)
--- NOTE | 2018-12-24 04:36 | RADIOLOGY REPORT (SQ) ---
CT abdomen and pelvis with contrast on 12/24/2018 at 3:16 AM CLINICAL INDICATION: Vomiting, no recent bowel movement since colonoscopy three days ago TECHNIQUE: Multiple axial images are obtained throughout the abdomen and pelvis following the administration of IV and oral contrast. 83 mL of Omnipaque 350 contrast was a exhibit artist. This exam was performed according to our departmental dose-optimization program, which includes automated exposure control, adjustment of the mA and/or kV according to patient size and/or use of iterative reconstruction technique. Total DLP is 1168.36 mGy*cm. COMPARISON: 08/06/2018 FINDINGS: Abdomen: The lung bases are clear. There is a morganii hernia again noted that now contains portion of the transverse colon extending into the hernia. There is some stool distention of the colon within the hernia and proximal to the hernia with decompressed colon distal to the hernia. There is some fluid and stranding within the hernia as well. The findings are consistent with likely early colonic obstruction and possible early incarceration of this hernia. Recommend surgical consultation. The solid abdominal organs are unremarkable. There is no abdominal adenopathy. Vascular calcifications are noted. There is no free fluid or free air within the abdomen. The abdominal portion of the GI tract is otherwise unremarkable. Pelvis: There are bilateral inguinal hernias, only containing fat on the left and containing a portion of nonobstructed bowel on the right. The patient is status post bilateral total hip arthroplasties which produces artifact limiting some of the evaluation of the lower pelvis. The patient is status post hysterectomy. There is diverticulosis. Pelvic portion of the GI tract is otherwise unremarkable. No free fluid is noted in the pelvis. There is no pelvic adenopathy. Degenerative changes and levoscoliosis is noted in the spine. IMPRESSION: 1. Transverse colon now extends into the patient's morganii hernia that extends into the right chest with evidence of early colonic obstruction related to this hernia and some fluid and stranding within the hernia now suggesting early incarceration or strangulation of this hernia. Recommend surgical consultation. TEENA Martinez in the emergency department taking care of the patient, was made aware of this finding and recommendation by myself by phone on 12/24/2018 at 4:33 AM eastern time. 2. Other chronic findings as above.
[2018-12-24] MEDS ORDERED: SUCCINYLCHOLINE CHLORIDE INJ 200 MG/10 ML VIAL ONE (05:00)
[2018-12-24] MEDS ORDERED: ONDANSETRON HCL INJ/PF 4 MG/2 ML SDV ONE (05:00)
[2018-12-24] MEDS ORDERED: NEOSTIGMINE METHYLSULFATE 10 MG/10 ML VIAL ONE (05:00)
[2018-12-24] MEDS ORDERED: GLYCOPYRROLATE 1 MG/5 ML VIAL ONE (05:00)
[2018-12-24] MEDS ORDERED: DEXAMETHASONE SOD PHOSPHATE INJ 4 MG/1 ML VIAL ONE (05:00)
[2018-12-24] MEDS ORDERED: ROCURONIUM BROMIDE INJ 50 MG/5 ML VIAL IV ONE (05:00)
[2018-12-24] MEDS ORDERED: DEXTROSE 50%-WATER 25 GM/50 ML DISP.SYRIN IV PRN ×2 (06:05)
[2018-12-24] MEDS ORDERED: DEXTROSE 40% GEL 15 GM TUBE PO PRN ×2 (06:05)
[2018-12-24] MEDS ORDERED: GLUCAGON,HUMAN RECOMB 1 MG INJ SUBCUT PRN (06:05)
--- NOTE | 2018-12-24 08:33 | EKG REPORT ---
SEVERITY:- ABNORMAL ECG - SINUS RHYTHM LOW VOLTAGE THROUGHOUT BORDERLINE T ABNORMALITIES, DIFFUSE LEADS, NEW SINCE 08/05/18. : Confirmed by: Esteban Cuellar MD 24-Dec-2018 08:33:25
[2018-12-24] MEDS: MORPHINE SULFATE 10 MG/ML INJ IV PRN ×2 (08:34→13:19)
[2018-12-24] MEDS: FAMOTIDINE INJ/PF 20 MG/2 ML SDV IV SCH ×2 (09:27→21:47)
[2018-12-24] MEDS: DEXTROSE 5%-LACTATED RINGERS 1,000 ML IV PRN ×2 (09:29→21:47)
[2018-12-24] MEDS: ENOXAPARIN SODIUM INJ 40 MG/0.4 ML DISP.SYRIN SUBCUT SCH (09:31)
--- NOTE | 2018-12-24 12:55 | PDOC H&P ---
History of Present Illness Admission Date/PCP: 12/24/18 05:08 DARRIN ZELAYA MD Patient complains of: Epigastric abdominal pain, nausea, vomiting. History of Present Illness: VAIBHAV TREVINO is a 78 year old female with a 1 day history of epigastric abdominal pain. She reports intermittent nausea and distention. Her abdominal pain is crampy in nature, and it waxes/wanes. Her pain is rated at 6 out of 10. Her pain does not radiate. Nothing makes it better, nothing makes it worse. She denies chest pain, shortness of breath, fevers, chills, headache, melena, hematochezia, hematemesis. The patient does have chronic constipation. She has not had a bowel movement in several days. Past Medical History Cardiac Medical History: Reports: Hypertension Denies: Congestive Heart Failure, Coronary Artery Disease, DVT, Myocardial Infarction, Hyperlipidema, Pulmonary Embolism Pulmonary Medical History: Reports: Pneumonia - hx Denies: Asthma, Bronchitis, Chronic Obstructive Pulmonary Disease (COPD) Neurological Medical History: Denies: Seizures Endocrine Medical History: Denies: Diabetes Mellitus Type 1, Diabetes Mellitus Type 2, Hyperthyroidism, Hypothyroidism GI Medical History: Denies: Cirrhosis, Gastroesophageal Reflux Disease, Hepatitis Musculoskeltal Medical History: Reports: Arthritis Psychiatric Medical History: Reports: Depression Hematology: Reports: Anemia - currently Past Surgical History Past Surgical History: Reports: Hysterectomy, Orthopedic Surgery - b/l knees; b/l hips; toes, Other - Bilateral cataract surgery. Bladder tack surgery. robotic bladder surgery Social History Lives with: Family Smoking Status: Never Smoker Frequency of Alcohol Use: Social Hx Recreational Drug Use: No Drugs: None Hx Prescription Drug Abuse: No Family History Family History: Reviewed & Not Pertinent Parental Family History Reviewed: Yes Children Family History Reviewed: Yes Sibling(s) Family History Reviewed.: Yes Medication/Allergy Home Medications: Acetaminophen [Tylenol Extra Strength 500 mg Tablet] 500 mg PO Q4HP PRN 12/24/18 Albuterol Sulfate [Proair HFA Inhalation Aerosol 8.5 gm MDI] 2 puff IH Q4HP PRN 12/24/18 Cholecalciferol (Vitamin D3) [Vitamin D3 2000 unit Tablet] 2,000 unit PO DAILY 12/24/18 Famotidine [Pepcid 40 mg Tablet] 40 mg PO QPM 12/24/18 Folic Acid [Folvite 1 mg Tablet] 3 mg PO MOSA 12/24/18 Lisinopril [Zestril] 20 mg PO DAILY 12/24/18 Loratadine [Claritin 10 mg Tablet] 10 mg PO QPM 12/24/18 Multivitamin [Multiple Vitamins] 1 tab PO DAILY 12/24/18 Oxycodone HCl/Acetaminophen [Percocet 7.5-325 mg Tablet] 1 tab PO Q6HP PRN 1 Sucralfate [Carafate 1 gm Tablet] 1 gm PO ACHS 12/24/18 Allergies/Adverse Reactions: No Known Allergies Allergy (Verified 12/07/18 08:44) Review of Systems Constitutional: ABSENT: anorexia, chills, fatigue, fever(s), headache(s), weakness Eyes: ABSENT: visual disturbances Ears: ABSENT: hearing changes Nose, Mouth, and Throat: ABSENT: mouth pain, sore throat Cardiovascular: ABSENT: chest pain Respiratory: ABSENT: dyspnea Gastrointestinal: PRESENT: abdominal pain, constipation, nausea. ABSENT: hematemesis, hematochezia, melena Genitourinary: ABSENT: dysuria Musculoskeletal: ABSENT: back pain Integumentary: ABSENT: pruritus, rash Neurological: ABSENT: confusion, convulsions, dizziness Psychiatric: ABSENT: anxiety, depression Endocrine: ABSENT: cold intolerance, heat intolerance Hematologic/Lymphatic: ABSENT: easy bleeding, easy bruising Physical Exam Vital Signs: Temp Pulse Resp BP Pulse Ox 98.2 F 81 18 149/77 H 97 12/24/18 06:51 12/24/18 06:51 12/24/18 06:51 12/24/18 06:51 12/24/18 06:51 Intake & Output 12/23/18 12/24/18 12/25/18 06:59 06:59 06:59 Intake Total 113 Output Total 200 Balance -87 Weight 73.2 kg General appearance: PRESENT: no acute distress, cooperative Head exam: PRESENT: atraumatic, normocephalic Eye exam: PRESENT: EOMI, PERRLA. ABSENT: scleral icterus Mouth exam: PRESENT: moist, neck supple Neck exam: PRESENT: meningismus, tenderness, thyromegaly, tracheal deviation Respiratory exam: PRESENT: unlabored. ABSENT: chest wall tenderness, tachypnea, wheezes Cardiovascular exam: PRESENT: RRR Pulses: PRESENT: normal radial pulses GI/Abdominal exam: PRESENT: distended, soft, tenderness. ABSENT: rebound, rigid Rectal exam: PRESENT: deferred Extremities exam: ABSENT: clubbing Musculoskeletal exam: PRESENT: ambulatory Neurological exam: PRESENT: alert, awake, oriented to person, oriented to place, oriented to time, oriented to situation, CN II-XII grossly intact Psychiatric exam: ABSENT: agitated, anxious, depressed Focused psych exam: ABSENT: delusional Skin exam: ABSENT: cyanosis, erythema, jaundice Results Laboratory Results: 12/24/18 00:15 12/24/18 00:15 12/24/18 12/24/18 00:15 00:15 WBC 9.9 RBC 3.76 Hgb 12.0 Hct 36.5 MCV 97 MCH 31.9 MCHC 32.9 RDW 16.1 H Plt Count 270 Seg Neutrophils % 84.5 H Sodium 137.4 Potassium 3.9 Chloride 101 Carbon Dioxide 27 Anion Gap 9 BUN 13 Creatinine 0.59 Est GFR ( Amer) > 60 Glucose 113 H Calcium 10.5 H Total Bilirubin 0.4 AST 26 Alkaline Phosphatase 86 Total Protein 7.3 Albumin 4.3 Lipase 164.3 12/24/18 12/24/18 12/24/18 00:15 00:15 04:10 Creatine Kinase 23 L CK-MB (CK-2) 0.37 Troponin I < 0.012 0.019 Impressions: Chest X-Ray 12/23/18 23:50 IMPRESSION: Persistent eventration of the right hemidiaphragm with a persistent right basilar airspace opacity, similar to the prior. copyright 2010 [employer]- All Rights Reserved Abdomen/Pelvis CT 12/24/18 00:00 IMPRESSION: 1. Transverse colon now extends into the patient's morganii hernia that extends into the right chest with evidence of early colonic obstruction related to this hernia and some fluid and stranding within the hernia now suggesting early incarceration or strangulation of this hernia. Recommend surgical consultation. TEENA Martinez in the emergency department taking care of the patient, was made aware of this finding and recommendation by myself by phone on 12/24/2018 at 4:33 AM eastern time. 2. Other chronic findings as above. Assessment & Plan - Diagnosis (1) Colonic obstruction Is this a current diagnosis for this admission?: Yes (2) Morgagni hernia Is this a current diagnosis for this admission?: Yes - Plan Summary Plan Summary: This is a 78-year-old female with an apparent incarcerated diaphragmatic hernia of Morgagni. I have reviewed her CT scan images and report. The hernia is causing a colonic obstruction. I have recommended surgical correction of the hernia for her. The patient and her have agreed to this. I plan robot-assisted laparoscopic diaphragmatic hernia repair, possible open. Risks/benefits discussed, informed consent obtained, and all questions answered.
[2018-12-24] MEDS ORDERED: HYDROMORPHONE HCL INJ/PF 2 MG/ML AMPULE ONE ×2 (16:06→19:39)
[2018-12-24] MEDS ORDERED: FENTANYL CITRATE INJ/PF 250 MCG/5 ML AMPULE ONE (16:06)
[2018-12-24] MEDS ORDERED: MIDAZOLAM 2 MG/2 ML INJ ONE (16:06)
[2018-12-24] MEDS ORDERED: PROPOFOL INJ 200 MG/20 ML VIAL IV ONE (16:06)
[2018-12-24] MEDS ORDERED: BUPIVACAINE HCL 0.25 % INJ/PF (2.5 MG/1 ML) 30 ML VIAL ONE (16:17)
[2018-12-24] MEDS ORDERED: CEFAZOLIN INJ 1 GM VIAL ONE (17:02)
[2018-12-24] MEDS ORDERED: FENTANYL CITRATE INJ/PF 100 MCG/2 ML AMPUL IV PRN ×3 (18:18)
[2018-12-24] MEDS ORDERED: DIPHENHYDRAMINE HCL 50 MG/ML VIAL IV PRN (18:18)
[2018-12-24] MEDS ORDERED: MORPHINE SULFATE 10 MG/ML INJ IV PRN (18:18)
[2018-12-24] MEDS ORDERED: MEPERIDINE HCL/PF INJ 25 MG/1 ML DISP.SYRIN IV PRN (18:18)
[2018-12-24] MEDS ORDERED: PROMETHAZINE HCL INJ 25 MG/1 ML VIAL IV PRN (18:18)
[2018-12-24] MEDS: FENTANYL CITRATE INJ/PF 100 MCG/2 ML AMPUL ONE ×2 (20:06→20:15)
[2018-12-24] MEDS ORDERED: LORAZEPAM INJ 2 MG/1 ML VIAL ONE (20:16)
[2018-12-24] MEDS ORDERED: LORAZEPAM INJ 2 MG/1 ML VIAL IV ONE (20:45)
[2018-12-24] MEDS: KETOROLAC TROMETHAMINE INJ/PF 30 MG/1 ML SDV IV SCH (22:37)
[2018-12-25] MEDS: HYDROMORPHONE HCL INJ/PF 2 MG/ML AMPULE IV PRN ×4 (04:06→18:16)
[2018-12-25 04:08] LABS: ABSOLUTE LYMPHOCYTES (AUTO) 0.7 10^3/uL (0.5-4.7); ABSOLUTE MONOCYTES (AUTO) 0.6 10^3/uL (0.1-1.4); ABSOLUTE NEUT (AUTO) 9.9 10^3/uL (1.7-8.2); BASOPHILS % (AUTO) 0.1 % (0-2); HEMATOCRIT 34.3 % (36.0-47.0); HEMOGLOBIN 11.4 g/dL (12.0-15.5); LYMPHOCYTES % (AUTO) 5.9 % (13-45); MEAN CORPUSCULAR HEMOGLOBIN 32.1 pg (27.0-33.4); MEAN CORPUSCULAR HGB CONC 33.3 g/dL (32.0-36.0); MEAN CORPUSCULAR VOLUME 96 fl (80-97); MONOCYTES % (AUTO) 5.2 % (3-13); PLATELET COUNT 259 10^3/uL (150-450); RED BLOOD COUNT 3.56 10^6/uL (3.72-5.28); RED CELL DISTRIBUTION WIDTH 15.8 % (11.5-14.0); SEGMENTED NEUTROPHILS % (AUTO) 88.8 % (42-78); TOTAL CELLS COUNTED % (AUTO) 100 %; WHITE BLOOD COUNT 11.2 10^3/uL (4.0-10.5)
[2018-12-25] MEDS: ONDANSETRON HCL INJ/PF 4 MG/2 ML SDV IV PRN ×5 (04:09→22:06)
[2018-12-25 04:30] LABS: ANION GAP 6 (5-19); BLOOD UREA NITROGEN 7 mg/dL (7-20); CALCIUM 9.6 mg/dL (8.4-10.2); CARBON DIOXIDE 29 mmol/L (22-30); CHLORIDE 100 mmol/L (98-107); GLUCOSE 178 mg/dL (75-110)
[2018-12-25] MEDS: KETOROLAC TROMETHAMINE INJ/PF 30 MG/1 ML SDV IV SCH ×3 (05:33→22:03)
--- NOTE | 2018-12-25 05:47 | Operative Report ---
Nonrecallable Operative Report DATE OF SURGERY: 12/24/18 PREOPERATIVE DIAGNOSIS: 1. Hernia of Morgagni (anterior diaphragmatic hernia). 2. Transverse colonic obstruction due to incarceration within the diaphragmatic hernia POSTOPERATIVE DIAGNOSIS: Same as above OPERATION: 1. Robot-assisted laparoscopic repair of a Morgagni hernia with mesh. 2. Reduction of incarcerated transverse colon with relief of obstruction. SURGEON: GUSTAVO HSIEH ANESTHESIA: GA TISSUE REMOVED OR ALTERED: None COMPLICATIONS: None apparent ESTIMATED BLOOD LOSS: 50 cc PROCEDURE: Drains/implants: 10 x [address] hernia mesh. Procedure in detail: After informed consent was obtained, the patient was brought into the operating room and laid in the supine position. The area of the abdomen was prepped and draped in a normal sterile fashion. An infraumbilical incision was created with a 15 blade scalpel. Dissection was c arried through the subcutaneous tissues using sharp and blunt dissection. The cicatrix was identified, grasped with a Benny clamp, and retracted upwards. The linea alba fascia was incised sharply, the abdomen was entered sharply. The balloon trocar was inserted, and pneumoperitoneum was achieved. 2 right and left 8 mm robotic trochars were placed under direct laparoscopic visualization. The robot was then brought over the patient and docked appropriately. I then assumed my position at the surgeon's console. The hernia defect was easily identified via the laparoscopic camera. There was a large amount of transverse colon incarcerated within the hernia sac. With great care the transverse colon was reduced back into the abdominal cavity. The transverse colon was examined after this was completed, and found to be free of any injury or defect. Next, attention was turned to closure of the hernia defect. A preperitoneal dissection was undertaken. The falciform ligament was freed from the anterior abdominal wall. The hernia sac was freed from the mediastinum using sharp dissection, blunt dissection, and electrocautery. Once the hernia sac was completely freed, and the preperitoneal space was adequately opened, 0 Ethibond sutures were used in horizontal mattress fashion to close the defect. Once the defect was closed, a 10 x [address] hernia mesh was chosen to adequately cover the defect. The mesh was sutured to the diaphragm using 0 Ethibond suture in circumferential, interrupted fashion. Great care was taken to avoid any neurovascular structures. The mesh was hidden away in a preperitoneal location. Once the mesh was sutured securely, the peritoneum was closed using 2-0 V Lock Suture in simple running fashion. The hernia sac was exceptionally large. A portion of the hernia sac was trimmed away to facilitate peritoneal closure. Once the peritoneum was closed, the repair was inspected. It appeared to be in good order. Attention was then turned to closure of the abdominal wall. The robot was undocked. I scrubbed back into the case. The 8 mm trocar sites were closed using 0 Vicryl suture in simple interrupted fashion with the aid of the Micheal-Terrance device. The infraumbilical fascia was closed using 0 Vicryl suture in ovdxrb-da-[id number] fashion with the aid of the Micheal-Terrance device. The overlying skin was closed with 4-0 Vicryl Rapide suture in subcuticular fashion. Dressings were placed, and the procedure was concluded. All sponge, instrument, and needle counts were correct x2. Condition: Stable.
[2018-12-25] MEDS: DEXTROSE 5%-LACTATED RINGERS 1,000 ML IV PRN ×2 (08:06→22:04)
[2018-12-25] MEDS ORDERED: ALBUTEROL SULFATE HFA (90 MCG/PUFF) 200 PUFF/8.5 GM MDI IH PRN (08:19)
[2018-12-25] MEDS: HYDROCODONE/ACETAMINOPHEN 10-325 MG TABLET PO PRN ×3 (09:52→22:05)
[2018-12-25] MEDS: FAMOTIDINE INJ/PF 20 MG/2 ML SDV IV SCH ×2 (09:54→22:04)
[2018-12-25] MEDS: LISINOPRIL 10 MG TABLET PO SCH (09:54)
[2018-12-25] MEDS: ENOXAPARIN SODIUM INJ 40 MG/0.4 ML DISP.SYRIN SUBCUT SCH (09:54)
[2018-12-25] MEDS ORDERED: (PENDING PHARMACY ID) (Lisinopril [Zestril] 20 MG) PO SCH (10:00)
--- NOTE | 2018-12-25 10:26 | RADIOLOGY REPORT (SQ) ---
EXAM DESCRIPTION: CHEST SINGLE VIEW COMPLETED DATE/TIME: 12/25/2018 9:54 am REASON FOR STUDY: s/p diaphragmatic hernia repair. pain with inspira COMPARISON: 12/24/2018 NUMBER OF VIEWS: One view. TECHNIQUE: Single frontal radiographic image of the chest acquired. LIMITATIONS: None. FINDINGS: LUNGS AND PLEURA: Increasing density in the right lower lung in a patient with known diaph ragmatic hernia. Uncertain if this is due to fluid in the surgical bed versus pleural effusion. Lef t lung is clear. MEDIASTINUM AND HEART: Stable heart size and mediastinal structures. BONY STRUCTURES: No acute findings. HARDWARE: None. OTHER: No other significant finding. IMPRESSION: Fluid in the bowel versus right pleural effusion. Consider right decubitus views or felipa st CT if important to differentiate. TECHNICAL DOCUMENTATION: JOB ID: [id number] Reading location - IP/workstation name: [email or web address]
[2018-12-25] MEDS: SUCRALFATE 1 GM TABLET PO SCH ×3 (11:45→22:57)
--- NOTE | 2018-12-25 17:32 | PDOC PROGRESS REPORT ---
Subjective Progress Note for:: 12/25/18 Reason For Visit: HERNIA OF MORGAGNI,BOWEL OBSTRUCTION Physical Exam Vital Signs: Temp Pulse Resp BP Pulse Ox 98.6 F 70 16 104/51 L 97 12/25/18 15:30 12/25/18 15:30 12/25/18 15:30 12/25/18 15:30 12/25/18 15:30 Intake & Output 12/24/18 12/25/18 12/26/18 06:59 06:59 06:59 Intake Total 3963 1000 Output Total 1375 175 Balance 2588 825 Weight 73.2 kg 76.7 kg 76.7 kg Results Laboratory Results: 12/25/18 03:16 12/25/18 03:16 12/25/18 12/25/18 03:16 03:16 WBC 11.2 H RBC 3.56 L Hgb 11.4 L Hct 34.3 L MCV 96 MCH 32.1 MCHC 33.3 RDW 15.8 H Plt Count 259 Seg Neutrophils % 88.8 H Sodium 135.0 L Potassium 4.0 Chloride 100 Carbon Dioxide 29 Anion Gap 6 BUN 7 Creatinine 0.53 Est GFR ( Amer) > 60 Glucose 178 H Calcium 9.6 12/24/18 12/24/18 12/24/18 00:15 00:15 04:10 Creatine Kinase 23 L CK-MB (CK-2) 0.37 Troponin I < 0.012 0.019 Impressions: Abdomen/Pelvis CT 12/24/18 00:00 IMPRESSION: 1. Transverse colon now extends into the patient's morganii hernia that extends into the right chest with evidence of early colonic obstruction related to this hernia and some fluid and stranding within the hernia now suggesting early incarceration or strangulation of this hernia. Recommend surgical consultation. TEENA Martinez in the emergency department taking care of the patient, was made aware of this finding and recommendation by myself by phone on 12/24/2018 at 4:33 AM eastern time. 2. Other chronic findings as above. Chest X-Ray 12/25/18 00:00 IMPRESSION: Fluid in the bowel versus right pleural effusion. Consider right decubitus views or chest CT if important to differentiate. Assessment & Plan - Diagnosis (1) Colonic obstruction Is this a current diagnosis for this admission?: Yes (2) Morgagni hernia Is this a current diagnosis for this admission?: Yes - Time Time Spent with patient: Less than 15 minutes - Plan Summary Plan Summary: This is a 78-year-old female status post repair of a diaphragmatic hernia, pascual otically. She is doing well today. Her pain is controlled. I have recommended she get out of bed and ambulate. She appears to be tolerating a diet. If she continues to do well, possible discharge tomorrow. I have reviewed her chest x- ray. She does have a pleural effusion, but this is likely postsurgical, as her transverse colon occupied a large portion of her right hemithorax. Will continu e to monitor this. Patient is breathing without difficulty.
[2018-12-25] MEDS: LORATADINE 10 MG TABLET PO SCH (18:12)
[2018-12-26] MEDS: HYDROMORPHONE HCL INJ/PF 2 MG/ML AMPULE IV PRN ×2 (02:17→06:00)
[2018-12-26] MEDS: ONDANSETRON HCL INJ/PF 4 MG/2 ML SDV IV PRN ×3 (02:18→10:02)
[2018-12-26] MEDS: KETOROLAC TROMETHAMINE INJ/PF 30 MG/1 ML SDV IV SCH ×3 (06:00→21:05)
[2018-12-26] MEDS: LISINOPRIL 10 MG TABLET PO SCH (09:29)
[2018-12-26] MEDS: DEXTROSE 5%-LACTATED RINGERS 1,000 ML IV PRN (09:29)
[2018-12-26] MEDS: HYDROCODONE/ACETAMINOPHEN 10-325 MG TABLET PO PRN (09:29)
[2018-12-26] MEDS: ENOXAPARIN SODIUM INJ 40 MG/0.4 ML DISP.SYRIN SUBCUT SCH (09:30)
[2018-12-26] MEDS: FAMOTIDINE INJ/PF 20 MG/2 ML SDV IV SCH ×2 (09:30→21:05)
[2018-12-26] MEDS: SUCRALFATE 1 GM TABLET PO SCH ×4 (09:31→21:05)
[2018-12-26] MEDS ORDERED: OXYCODONE HCL IR 5 MG TABLET PO PRN (11:25)
[2018-12-26] MEDS: DOCUSATE SODIUM 100 MG CAPSULE PO SCH ×2 (11:50→17:09)
[2018-12-26] MEDS ORDERED: MAGNESIUM CITRATE 296 ML BOTTLE PO ONE (12:00)
--- NOTE | 2018-12-26 12:44 | PDOC PROGRESS REPORT ---
Subjective Progress Note for:: 12/26/18 Reason For Visit: HERNIA OF MORGAGNI,BOWEL OBSTRUCTION Physical Exam Vital Signs: Temp Pulse Resp BP Pulse Ox 98.1 F 80 18 124/59 L 92 12/26/18 07:40 12/26/18 07:40 12/26/18 07:40 12/26/18 07:40 12/26/18 07:40 Intake & Output 12/25/18 12/26/18 12/27/18 06:59 06:59 06:59 Intake Total 3963 3155 1000 Output Total 1375 1425 Balance 2588 1730 1000 Weight 76.7 kg 79.9 kg Results Laboratory Results: 12/25/18 03:16 12/25/18 03:16 12/24/18 12/24/18 12/24/18 00:15 00:15 04:10 Creatine Kinase 23 L CK-MB (CK-2) 0.37 Troponin I < 0.012 0.019 Impressions: Abdomen/Pelvis CT 12/24/18 00:00 IMPRESSION: 1. Transverse colon now extends into the patient's morganii hernia that extends into the right chest with evidence of early colonic obstruction related to this hernia and some fluid and stranding within the hernia now suggesting early incarceration or strangulation of this hernia. Recommend surgical consultation. TEENA Martinez in the emergency department taking care of the patient, was made aware of this finding and recommendation by myself by phone on 12/24/2018 at 4:33 AM eastern time. 2. Other chronic findings as above. Chest X-Ray 12/25/18 00:00 IMPRESSION: Fluid in the bowel versus right pleural effusion. Consider right decubitus views or chest CT if important to differentiate. Assessment & Plan - Diagnosis (1) Colonic obstruction Is this a current diagnosis for this admission?: Yes (2) Morgagni hernia Is this a current diagnosis for this admission?: Yes - Time Time Spent with patient: Less than 15 minutes - Plan Summary Plan Summary: This is a 78-year-old female status post repair of a diaphragmatic hernia, robotically. She is doing reasonably well today. She complains of pain this morning. She continues to request larger amounts of IV narcotics. Yesterday, I recommended she get out of bed and ambulate. She has not done this. She appears to be tolerating a diet, although she reports constipation. Pt is not ambulating, as directed --> consult PT. Ambulate in halls TID. Complaints of pain --> The pt takes percocet at home for chronic joint pain. A long discussion was held with her regarding narcotic tolerance with long-term use, and the ineffectiveness of narcotics for acute pain in patients that take chronic narcotics. Increase Percocet to 10mg/325mg q4 hrs PRN. Keep Dilaudid at same level. Continue Toradol. Aggressive pulmonary toilet --> IS at bedside. Constipation --> Colace 200mg PO BID. Mag citrate today.
[2018-12-26] MEDS: OXYCODONE-ACETAMINOPHEN 5-325 MG TABLET PO PRN ×2 (13:27→21:06)
[2018-12-26] MEDS: LORATADINE 10 MG TABLET PO SCH (17:09)
[2018-12-27] MEDS: KETOROLAC TROMETHAMINE INJ/PF 30 MG/1 ML SDV IV SCH ×3 (05:39→21:20)
[2018-12-27] MEDS: OXYCODONE-ACETAMINOPHEN 5-325 MG TABLET PO PRN ×3 (05:40→21:18)
[2018-12-27] MEDS: SUCRALFATE 1 GM TABLET PO SCH ×4 (08:14→21:19)
[2018-12-27] MEDS: ONDANSETRON HCL INJ/PF 4 MG/2 ML SDV IV PRN (08:27)
[2018-12-27] MEDS: ENOXAPARIN SODIUM INJ 40 MG/0.4 ML DISP.SYRIN SUBCUT SCH (09:39)
[2018-12-27] MEDS: LISINOPRIL 10 MG TABLET PO SCH (09:39)
[2018-12-27] MEDS: DOCUSATE SODIUM 100 MG CAPSULE PO SCH ×2 (09:39→17:32)
[2018-12-27] MEDS: FAMOTIDINE INJ/PF 20 MG/2 ML SDV IV SCH ×2 (09:40→21:20)
[2018-12-27] MEDS: LORATADINE 10 MG TABLET PO SCH (17:23)
--- NOTE | 2018-12-27 20:16 | PDOC PROGRESS REPORT ---
Subjective Progress Note for:: 12/27/18 Reason For Visit: HERNIA OF MORGAGNI,BOWEL OBSTRUCTION Physical Exam Vital Signs: Temp Pulse Resp BP Pulse Ox 97.4 F 81 16 150/79 H 96 12/27/18 15:40 12/27/18 15:40 12/27/18 15:40 12/27/18 15:40 12/27/18 15:40 Intake & Output 12/26/18 12/27/18 12/28/18 06:59 06:59 06:59 Intake Total 3155 3365 620 Output Total 1425 2200 300 Balance 1730 1165 320 Weight 79.9 kg 81.1 kg Results Laboratory Results: 12/25/18 03:16 12/25/18 03:16 12/24/18 12/24/18 12/24/18 00:15 00:15 04:10 Creatine Kinase 23 L CK-MB (CK-2) 0.37 Troponin I < 0.012 0.019 Impressions: Abdomen/Pelvis CT 12/24/18 00:00 IMPRESSION: 1. Transverse colon now extends into the patient's morganii hernia that extends into the right chest with evidence of early colonic obstruction related to this hernia and some fluid and stranding within the hernia now suggesting early incarceration or strangulation of this hernia. Recommend surgical consultation. TEENA Martinez in the emergency department taking care of the patient, was made aware of this finding and recommendation by myself by phone on 12/24/2018 at 4:33 AM eastern time. 2. Other chronic findings as above. Chest X-Ray 12/25/18 00:00 IMPRESSION: Fluid in the bowel versus right pleural effusion. Consider right decubitus views or chest CT if important to differentiate. Assessment & Plan - Diagnosis (1) Colonic obstruction Is this a current diagnosis for this admission?: Yes (2) Morgagni hernia Is this a current diagnosis for this admission?: Yes - Time Time Spent with patient: Less than 15 minutes - Plan Summary Plan Summary: This is a 78-year-old female status post repair of a diaphragmatic hernia, robotically. She is doing reasonably well today. Her pain is better controlled today. She ambulated in the halls today with nursing staff. She is having bowel movements. She is tolerating a diet. Aggressive pulmonary toilet --> IS at bedside. D/c planning.
[2018-12-28] MEDS: OXYCODONE-ACETAMINOPHEN 5-325 MG TABLET PO PRN (05:24)
[2018-12-28] MEDS: KETOROLAC TROMETHAMINE INJ/PF 30 MG/1 ML SDV IV SCH ×2 (05:25→14:32)
[2018-12-28] MEDS: LISINOPRIL 10 MG TABLET PO SCH (09:04)
[2018-12-28] MEDS: DOCUSATE SODIUM 100 MG CAPSULE PO SCH (09:09)
[2018-12-28] MEDS: FAMOTIDINE INJ/PF 20 MG/2 ML SDV IV SCH (09:10)
[2018-12-28] MEDS: ENOXAPARIN SODIUM INJ 40 MG/0.4 ML DISP.SYRIN SUBCUT SCH (09:10)
[2018-12-28] MEDS: SUCRALFATE 1 GM TABLET PO SCH ×2 (09:10→12:00)
[2018-12-28 15:03] VITALS: BP 149/77
--- NOTE | 2019-01-16 13:27 | PDOC DISCHARGE SUMMARY ---
General - Admit/Disc Date/PCP Admission Date/Primary Care Provider: 12/24/18 05:08 DARRIN ZELAYA MD Discharge Date: 12/28/18 - Discharge Diagnosis Final Diagnosis: Hernia of Morgagni, causing colonic obstruction - Assessment Summary: This is a 78-year-old female admitted to the hospital with a colonic obstruction due to a diaphragmatic hernia of Morgagni. The patient was taken to the operating room for robot-assisted laparoscopic diaphragmatic hernia repair. This was successful. The patient was taken to the floor in stable condition. Over the subsequent days, the patient began ambulating and tolerating a diet. Her pain was controlled with oral pain medications. She was able to breathe deep and cough. Her incentive spirometry use improved daily. By 12/28/2018, it was felt that the patient had reached maximal hospital benefit, and was fit for discharge. - Additional Information Resuscitation Status: Full Code Discharge Diet: As Tolerated Discharge Activity: No Lifting Over 10 Pounds, No Lifting/Push/Pulling Referrals: GUSTAVO HSIEH MD [ACTIVE STAFF] - 01/05/19 10:45 am Home Medications: Acetaminophen [Tylenol Extra Strength 500 mg Tablet] 500 mg PO Q4HP PRN 12/24/18 Albuterol Sulfate [Proair HFA Inhalation Aerosol 8.5 gm MDI] 2 puff IH Q4HP PRN 12/24/18 Cholecalciferol (Vitamin D3) [Vitamin D3 2000 unit Tablet] 2,000 unit PO DAILY 12/24/18 Famotidine [Pepcid 40 mg Tablet] 40 mg PO QPM 12/24/18 Folic Acid [Folvite 1 mg Tablet] 3 mg PO MOSA 12/24/18 Lisinopril [Zestril] 20 mg PO DAILY 12/24/18 Loratadine [Claritin 10 mg Tablet] 10 mg PO QPM 12/24/18 Multivitamin [Multiple Vitamins] 1 tab PO DAILY 12/24/18 Oxycodone HCl/Acetaminophen [Percocet 7.5-325 mg Tablet] 1 tab PO Q6HP PRN 12/24/18 Sucralfate [Carafate 1 gm Tablet] 1 gm PO ACHS 12/24/18 Additional Information: Discharge home. Diet as tolerated. Activity: No lifting or than 10 pounds x 6 weeks after surgery. Follow-up with [facility] in 7 to 10 days. History of Present Illiness History of Present Illness: VAIBHAV TREVINO is a 78 year old female with a 1 day history of epigastric abdominal pain. She reports intermittent nausea and distention. Her abdominal pain is crampy in nature, and it waxes/wanes. Her pain is rated at 6 out of 10. Her pain does not radiate. Nothing makes it better, nothing makes it worse. She denies chest pain, shortness of breath, fevers, chills, headache, melena, hematochezia, hematemesis. The patient does have chronic constipation. She has not had a bowel movement in several days. Physical Exam Vital Signs: Temp Pulse Resp BP Pulse Ox 97.4 F 83 16 149/77 H 98 12/28/18 14:59 12/28/18 14:59 12/28/18 14:59 12/28/18 14:59 12/28/18 14:59 Results Laboratory Results: WBC 11.2 10^3/uL (4.0-10.5) H 12/25/18 03:16 RBC 3.56 10^6/uL (3.72-5.28) L 12/25/18 03:16 Hgb 11.4 g/dL (12.0-15.5) L 12/25/18 03:16 Hct 34.3 % (36.0-47.0) L 12/25/18 03:16 MCV 96 fl (80-97) 12/25/18 03:16 MCH 32.1 pg (27.0-33.4) 12/25/18 03:16 MCHC 33.3 g/dL (32.0-36.0) 12/25/18 03:16 RDW 15.8 % (11.5-14.0) H 12/25/18 03:16 Plt Count 259 10^3/uL (150-450) 12/25/18 03:16 Lymph % (Auto) 5.9 % (13-45) L 12/25/18 03:16 Douglas % (Auto) 5.2 % (3-13) 12/25/18 03:16 Eos % (Auto) 0.0 % (0-6) 12/25/18 03:16 Baso % (Auto) 0.1 % (0-2) 12/25/18 03:16 Absolute Neuts (auto) 9.9 10^3/uL (1.7-8.2) H 12/25/18 03:16 Absolute Lymphs (auto) 0.7 10^3/uL (0.5-4.7) 12/25/18 03:16 Absolute Monos (auto) 0.6 10^3/uL (0.1-1.4) 12/25/18 03:16 Absolute Eos (auto) 0.0 10^3/uL (0.0-0.6) 12/25/18 03:16 Absolute Basos (auto) 0.0 10^3/uL (0.0-0.2) 12/25/18 03:16 Seg Neutrophils % 88.8 % (42-78) H 12/25/18 03:16 Sodium 135.0 mmol/L (137-145) L 12/25/18 03:16 Potassium 4.0 mmol/L (3.6-5.0) 12/25/18 03:16 Chloride 100 mmol/L (98-107) 12/25/18 03:16 Carbon Dioxide 29 mmol/L (22-30) 12/25/18 03:16 Anion Gap 6 (5-19) 12/25/18 03:16 BUN 7 mg/dL (7-20) 12/25/18 03:16 Creatinine 0.53 mg/dL (0.52-1.25) 12/25/18 03:16 Est GFR ( Amer) > 60 (>60) 12/25/18 03:16 Est GFR (MDRD) Non-Af > 60 (>60) 12/25/18 03:16 Glucose 178 mg/dL (75-110) H 12/25/18 03:16 Calcium 9.6 mg/dL (8.4-10.2) 12/25/18 03:16 Total Bilirubin 0.4 mg/dL (0.2-1.3) 12/24/18 00:15 Direct Bilirubin 0.1 mg/dL (0.0-0.4) 12/24/18 00:15 Neonat Total Bilirubin Not Reportable 12/24/18 00:15 Neonat Direct Bilirubin Not Reportable 12/24/18 00:15 Neonat Indirect Bili Not Reportable 12/24/18 00:15 AST 26 U/L (14-36) 12/24/18 00:15 ALT 23 U/L (<35) 12/24/18 00:15 Alkaline Phosphatase 86 U/L (38-126) 12/24/18 00:15 Creatine Kinase 23 U/L (30-135) L 12/24/18 00:15 CK-MB (CK-2) 0.37 ng/mL (<4.55) 12/24/18 00:15 Troponin I 0.019 ng/mL 12/24/18 04:10 Total Protein 7.3 g/dL (6.3-8.2) 12/24/18 00:15 Albumin 4.3 g/dL (3.5-5.0) 12/24/18 00:15 Lipase 164.3 U/L (23-300) 12/24/18 00:15 12/24/18 12/24/18 00:15 04:10 CK-MB (CK-2) 0.37 Troponin I < 0.012 0.019 Impressions: Chest X-Ray 12/23/18 23:50 IMPRESSION: Persistent eventration of the right hemidiaphragm with a persistent right basilar airspace opacity, similar to the prior. copyright 2011 [employer]- All Rights Reserved Abdomen/Pelvis CT 12/24/18 00:00 IMPRESSION: 1. Transverse colon now extends into the patient's morganii hernia that extends into the right chest with evidence of early colonic obstruction related to this hernia and some fluid and stranding within the hernia now suggesting early incarceration or strangulation of this hernia. Recommend surgical consultation. TEENA Martinez in the emergency department taking care of the patient, was made aware of this finding and recommendation by myself by phone on 12/24/2018 at 4:33 AM eastern time. 2. Other chronic findings as above. Chest X-Ray 12/25/18 00:00 IMPRESSION: Fluid in the bowel versus right pleural effusion. Consider right decubitus views or chest CT if important to differentiate.
== END 2018-12-28 16:20 | disposition home health service (06) | DRG 328 ==
LOC: ER 22:28 → EH 12-24 05:08 → 4N 12-24 06:22
PROVIDERS: ADMIT Surgery; ATTEND Surgery
PROC: 8E0W4CZ Robotic Assisted Procedure of Trunk Region, Percutaneous Endoscopic Approach (ICD-10-PCS; 2018-12-24)
PROC: 0BUT4JZ Supplement Diaphragm with Synthetic Substitute, Percutaneous Endoscopic Approach (ICD-10-PCS; principal; 2018-12-24 14:00)
DX: K44.0 Diaphragmatic hernia with obstruction, without gangrene (principal); K59.09 Other constipation; I10 Essential (primary) hypertension; F32.9 Major depressive disorder, single episode, unspecified; D64.9 Anemia, unspecified; Z79.899 Other long term (current) drug therapy; Z79.891 Long term (current) use of opiate analgesic
CPT/HCPCS: 00756; 36415; 71045; 74177; 80048; 80053; 82550; 82553; 83690; 84484; 85025; 88302; 93005; 93010; 94799; 96374; 96375; 96376; 99285; C1781; J0330; J0690; J1100; J1170; J1650; J1885; J2060; J2250; J2270; J2405; J2704; J2710; J3010; J3490; J7030; J7121; S0028

== ENCOUNTER → 2019-05-08 | Outpatient (CLI) | payer MEDICARE, BC ==
--- NOTE | 2019-05-09 11:52 | RADIOLOGY REPORT (SQ) ---
EXAM DESCRIPTION: CT ABD/PELVIS WITH IV ORAL COMPLETED DATE/TIME: 05/08/2019 2:02 pm REASON FOR STUDY: K43.2 INCISIONAL HERNIA WITHOUT OBSTRUCTION OR GANGRENE K43.2 INCISIONAL HERNIA W ITHOUT OBSTRUCTION OR GANGRENE COMPARISON: 12/24/2018 TECHNIQUE: CT scan of the abdomen and pelvis performed using helical scanning technique with dynamic intravenous contrast injection. No oral contrast. Images reviewed with lung, soft tissue, and bone windows. Reconstructed coronal and sagittal MPR images reviewed. Delayed images for evaluation of the urinary system also acquired. All images stored on PACS. All CT scanners at this facility use dose modulation, iterative reconstruction, and/or weight based d osing when appropriate to reduce radiation dose to as low as reasonably achievable (ALARA). [facility]: Dose Right [facility]: CareDose [facility]: Dose Right [facility]: Teradose 4D [facility]: [employer] CONTRAST TYPE AND DOSE: contrast/concentration: Isovue 350.00 mg/ml; Total Contrast Delivered: 83.0 ml; Total Saline Delivered: 69.0 ml RENAL FUNCTION: Creatinine 0.7 RADIATION DOSE: CT Rad equipment meets quality standard of care and radiation dose reduction techniq ues were employed. CTDIvol: 11.6 - 11.7 mGy. DLP: 1131 mGy-cm.. LIMITATIONS: Limited images through the pelvis secondary to bilateral hip prostheses. FINDINGS: LOWER CHEST: Small right-sided hiatal hernia this contains a small contained fluid collect ion. This measures 3.4 cm in greatest diameter. The large hernia previously described containing co lance has been repaired. LIVER: Normal size. No masses. No dilated ducts. SPLEEN: Normal size. No focal lesions. PANCREAS: No masses. No significant calcifications. No adjacent inflammation or peripancreatic fluid collections. Pancreatic duct not dilated. GALLBLADDER: No identified stones by CT criteria. No inflammatory changes to suggest cholecystitis. ADRENAL GLANDS: No significant masses or asymmetry. RIGHT KIDNEY AND URETER: No solid masses. No significant calcifications. No hydronephrosis or hyd roureter. LEFT KIDNEY AND URETER: No solid masses. No significant calcifications. Mild prominence of the le ft renal pelvis but no hydronephrosis or hydroureter. AORTA AND VESSELS: No aneurysm. No dissection. Renal arteries, SMA, celiac without stenosis. RETROPERITONEUM: No retroperitoneal adenopathy, hemorrhage or masses. BOWEL AND PERITONEAL CAVITY: Scattered diverticuli. No acute diverticulitis. Redundant ascending co lance. APPENDIX: Not visualized. PELVIS: There is a 4 cm left adnexal lesion most likely ovarian cyst. This is increased in size when compared to 12/24/2018. ABDOMINAL WALL: There is a defect in the left lower or anterior lateral abdominal wall containing ome ntal fat. The defect measures approximately 3 cm in greatest diameter. This is new from prior study . BONES: No significant or acute findings. OTHER: No other significant finding. IMPRESSION: Previously described large right diaphragmatic hernia has been repaired. There is fat a long the anterior margin of the right hemidiaphragm. This contains a 3.4 cm cystic structure new fro m prior exam and may be related to a prior surgery. Clinical correlation is needed. No other signif icant findings in the abdomen or pelvis. New left lower anterior abdominal wall defect measuring approximately 3 cm in diameter. This contain s omental fat only. TECHNICAL DOCUMENTATION: JOB ID: [id number] Quality ID # [id number]: Final reports with documentation of one or more dose reduction techniques (e.g., Au tomated exposure control, adjustment of the mA and/or kV according to patient size, use of iterative reconstruction technique) 2010 [employer]- All Rights Reserved Reading location - IP/workstation name: [email or web address]
== END ==
LOC: RAD 13:13
PROVIDERS: ATTEND Surgery
DX: K43.2 Incisional hernia without obstruction or gangrene (principal)
CPT/HCPCS: 74177; 82565